=== PATIENT | female | born 1965 | race Caucasian/White ===

== ENCOUNTER 2017-04-24 10:00 | Day surgery (SDC) | payer BC ==
[2017-04-24] MEDS ORDERED: LIDOCAINE 4% SOLUTION 50 ML BTL (11:18)
[2017-04-24] MEDS ORDERED: FENTAnyl 50 MCG/ML VIAL (11:42)
[2017-04-24] MEDS ORDERED: MIDAZOLAM 1 MG/ML 2 ML INJ ×2 (11:42)
== END 2017-04-24 13:29 | disposition home or self-care (01) ==
LOC: GIL 10:00
DX: K29.50 Unspecified chronic gastritis without bleeding (principal)
CPT/HCPCS: 43239; 88305; 88312

== ENCOUNTER 2017-12-20 16:09 | Inpatient (IN) | payer BC ==
[2017-12-20] MEDS: SOD CHLORIDE 0.9% 1,000 ML IV (17:03)
[2017-12-20] MEDS: morphine 4 MG/ML VIAL IV (17:04)
[2017-12-20] MEDS: ONDANSETRON 4 MG INJ IV (17:04)
[2017-12-20 17:05] LABS: ADD MAN DIFF? NO
[2017-12-20 17:07] LABS: BASOPHIL # 0.1 10^3/ul (0.0-0.1); EOSINOPHILS # 0.3 10^3/ul (0.0-0.5); EOSINOPHILS % 4.5 % (0.0-7.0); HEMATOCRIT 40.1 % (37.0-47.0); HEMOGLOBIN 13.7 g/dl (12.0-16.0); LYMPHOCYTES # 1.7 10^3/ul (0.8-2.9); LYMPHOCYTES % 29.6 % (15.0-51.0); MEAN CORPUSCULAR HEMOGLOBIN 32.5 pg (29.0-33.0); MEAN CORPUSCULAR HGB CONC 34.2 g/dl (32.0-37.0); MEAN CORPUSCULAR VOLUME 95.2 fl (82.0-101.0); MEAN PLATELET VOLUME 10.3 fl (7.4-10.4); MONOCYTE # 0.4 10^3/ul (0.3-0.9); MONOCYTES % 6.7 % (0.0-11.0); NEUTROPHIL # 3.3 10^3/ul (1.6-7.5); NEUTROPHILS % 57.3 % (39.0-77.0); PLATELET COUNT 195 10^3/UL (140-415); RED BLOOD COUNT 4.21 10^6/ul (4.20-5.40); RED CELL DISTRIBUTION WIDTH 12.5 % (11.5-14.5)
[2017-12-20 17:07] LABS: WHITE BLOOD COUNT 5.8 10^3/ul (4.8-10.8)
[2017-12-20 17:15] LABS: ADD UMIC YES; UR ASCORBIC ACID 40 mg/dL (NEGATIVE); UR BACTERIA FEW /HPF (NONE SEEN); UR BILIRUBIN (Dip) NEGATIVE (NEGATIVE); UR BLOOD (Dip) NEGATIVE (NEGATIVE); UR BUDDING YEAST FEW /HPF (NONE SEEN); UR CLARITY CLOUDY (CLEAR); UR COLOR YELLOW (YELLOW); UR GLUCOSE (Dip) NEGATIVE (NEGATIVE); UR KETONES (Dip) NEGATIVE (NEGATIVE); UR LEUKOCYTE ESTERASE (Dip) NEGATIVE Leu/ul (NEGATIVE); UR MUCUS MODERATE /HPF (NONE SEEN); UR NITRITE (Dip) NEGATIVE (NEGATIVE); UR RBC 9 /HPF (0-5); UR SPECIFIC GRAVITY (Dip) 1.028 (1.003-1.030); UR SQUAMOUS EPITHELIAL CELL FEW /HPF (FEW); UR TOTAL PROTEIN (Dip) NEGATIVE (NEGATIVE); UR UROBILINOGEN (Dip) NEGATIVE (NEGATIVE); UR WBC 10 /HPF (0-5)
[2017-12-20 17:25] LABS: ALANINE AMINOTRANSFERASE 90 IU/L (13-69); ALBUMIN 3.7 g/dl (3.3-4.9); ALBUMIN/GLOBULIN RATIO 1.08; ALKALINE PHOSPHATASE 102 IU/L (42-121); ANION GAP 13 (8-16); ASPARTATE AMINO TRANSFERASE 63 IU/L (15-46); BILIRUBIN,INDIRECT 0.6 mg/dl (0-1.1); BILIRUBIN,TOTAL 0.6 mg/dl (0.2-1.3); BLOOD UREA NITROGEN 13 mg/dl (7-20); CALCIUM 9.8 mg/dl (8.4-10.2); CARBON DIOXIDE 28 mmol/L (21-31); CHLORIDE 106 mmol/L (97-110); CREATININE 1.06 mg/dl (0.44-1.00); GLUCOSE 151 mg/dl (70-220); LIPASE 111 U/L (23-300); POTASSIUM 3.9 mmol/L (3.5-5.1); SODIUM 143 mmol/L (135-144); TOTAL PROTEIN 7.1 g/dl (6.1-8.1)
[2017-12-20] MEDS: KETOROLAC 30 MG INJ IV (18:08)
[2017-12-20] MEDS: ASPIRIN 81 MG TAB PO (19:59)
[2017-12-20 20:03] LABS: TROPONIN-I < 0.012 ng/ml (0.000-0.120)
[2017-12-20] MEDS: LORAZEPAM 2 MG INJ IV (21:59)
[2017-12-20] MEDS: LIDOCAINE/MYLANTA 40 ML BTL PO (21:59)
[2017-12-21] MEDS: ONDANSETRON 4 MG INJ IV (04:00)
[2017-12-21] MEDS ORDERED: ONDANSETRON 4 MG INJ IV (04:00)
[2017-12-21] MEDS: morphine 2 MG INJ IV (04:00)
[2017-12-21] MEDS ORDERED: DOCUSATE SODIUM 100 MG CAP PO (05:30)
[2017-12-21] MEDS ORDERED: morphine 2 MG INJ IV (05:30)
[2017-12-21] MEDS ORDERED: BISACODYL (EC) 5 MG TAB PO (05:30)
[2017-12-21] MEDS ORDERED: ACETAMINOPHEN 325 MG TAB PO (05:30)
[2017-12-21] MEDS ORDERED: NACL 0.9% 3 ML SYG IV (05:30)
[2017-12-21 05:43] LABS: ADD MAN DIFF? NO
[2017-12-21] MEDS: SOD CHLORIDE 0.9% 1,000 ML IV ×2 (05:51→20:32)
[2017-12-21] MEDS: NITROGLYCERIN (SL) 0.4 MG TAB SL (05:51)
[2017-12-21] MEDS: SUCRALFATE 1 GM TAB PO ×4 (05:51→23:37)
[2017-12-21] MEDS: PANTOPRAZOLE 40 MG INJ IV ×2 (05:51→17:35)
[2017-12-21 05:56] LABS: WHITE BLOOD COUNT 6.3 10^3/ul (4.8-10.8)
[2017-12-21 05:56] LABS: BASOPHIL # 0.1 10^3/ul (0.0-0.1); BASOPHILS % 0.8 % (0.0-2.0); EOSINOPHILS # 0.3 10^3/ul (0.0-0.5); EOSINOPHILS % 4.9 % (0.0-7.0); HEMATOCRIT 41.1 % (37.0-47.0); HEMOGLOBIN 14.2 g/dl (12.0-16.0); LYMPHOCYTES # 2.1 10^3/ul (0.8-2.9); LYMPHOCYTES % 33.5 % (15.0-51.0); MEAN CORPUSCULAR HEMOGLOBIN 32.6 pg (29.0-33.0); MEAN CORPUSCULAR HGB CONC 34.5 g/dl (32.0-37.0); MEAN CORPUSCULAR VOLUME 94.5 fl (82.0-101.0); MEAN PLATELET VOLUME 10.4 fl (7.4-10.4); MONOCYTE # 0.4 10^3/ul (0.3-0.9); MONOCYTES % 6.8 % (0.0-11.0); NEUTROPHIL # 3.4 10^3/ul (1.6-7.5); NEUTROPHILS % 53.5 % (39.0-77.0); PLATELET COUNT 197 10^3/UL (140-415); RED BLOOD COUNT 4.35 10^6/ul (4.20-5.40); RED CELL DISTRIBUTION WIDTH 12.5 % (11.5-14.5)
[2017-12-21 06:09] LABS: D-DIMER 405.04 ng/ml (<460)
[2017-12-21] MEDS: ENOXAPARIN 100 MG/ML SYG SC (06:09)
[2017-12-21 07:10] LABS: ALBUMIN 4.2 g/dl (3.3-4.9); ALBUMIN/GLOBULIN RATIO 1.27; ALKALINE PHOSPHATASE 96 IU/L (42-121); ANION GAP 11 (8-16); ASPARTATE AMINO TRANSFERASE 63 IU/L (15-46); BILIRUBIN,INDIRECT 0.7 mg/dl (0-1.1); BILIRUBIN,TOTAL 0.7 mg/dl (0.2-1.3); BLOOD UREA NITROGEN 12 mg/dl (7-20); CALCIUM 9.3 mg/dl (8.4-10.2); CARBON DIOXIDE 28 mmol/L (21-31); CHLORIDE 107 mmol/L (97-110); CHOL/HDL RATIO 6.2 RATIO; CHOLESTEROL 245 mg/dl (100-200); CREATININE 0.81 mg/dl (0.44-1.00); GLUCOSE 106 mg/dl (70-220); HDL CHOLESTEROL 39 mg/dl (37-92); LDL CHOLESTEROL,CALCULATED 162 mg/dl; MAGNESIUM 2.3 mg/dl (1.7-2.5); POTASSIUM 4.1 mmol/L (3.5-5.1); SODIUM 142 mmol/L (135-144); TOTAL PROTEIN 7.5 g/dl (6.1-8.1); TRIGLYCERIDES 220 mg/dl (0-149)
[2017-12-21 07:55] LABS: ALANINE AMINOTRANSFERASE 90 IU/L (13-69)
[2017-12-21 09:15] LABS: HEMOGLOBIN A1C 6.1 % (0-5.9)
[2017-12-21 10:43] LABS: FREE T4 (FREE THYROXINE) 0.56 ng/dl (0.64-1.79)
[2017-12-21 10:50] LABS: AADO2 Arterial 55.7 mmHg (7.0-24.0); Allen Test ACCEPTAB; Arterial Base Excess -1.2 mmol/L (-3.0-3); Arterial Blood Gas Oxygen Sat 97.6 mmHG (95.0-98.0); Arterial COHb 0.1 % (0.0-3.0); Arterial Fraction of Oxyhgb 97.3 % (93.0-99.0); Arterial HCO3 21.9 mmol/L (22.0-26.0); Arterial MetHb 0.2 % (0.0-1.5); Arterial Total Hemglobin 14.3 g/dl (12.0-18.0); Arterial pCO2 32.6 mmhg (35-45); MODE NASAL CANNULA; Site Right Radial
[2017-12-21 11:24] LABS: TROPONIN-I < 0.012 ng/ml (0.000-0.120)
[2017-12-21] MEDS: LEVOTHYROXINE 150 MCG TAB PO (11:37)
[2017-12-21] MEDS ORDERED: morphine LIQ (10 MG/5 ML) CUP PO (15:30)
[2017-12-21 16:49] LABS: TROPONIN-I < 0.012 ng/ml (0.000-0.120)
[2017-12-22] MEDS: SOD CHLORIDE 0.9% 1,000 ML IV ×3 (01:02→17:18)
[2017-12-22 06:01] LABS: ADD MAN DIFF? NO
[2017-12-22 06:11] LABS: WHITE BLOOD COUNT 5.6 10^3/ul (4.8-10.8)
[2017-12-22 06:11] LABS: BASOPHIL # 0.1 10^3/ul (0.0-0.1); BASOPHILS % 0.9 % (0.0-2.0); EOSINOPHILS # 0.3 10^3/ul (0.0-0.5); EOSINOPHILS % 5.2 % (0.0-7.0); HEMATOCRIT 39.2 % (37.0-47.0); HEMOGLOBIN 13.4 g/dl (12.0-16.0); LYMPHOCYTES # 1.9 10^3/ul (0.8-2.9); LYMPHOCYTES % 34.3 % (15.0-51.0); MEAN CORPUSCULAR HEMOGLOBIN 32.5 pg (29.0-33.0); MEAN CORPUSCULAR HGB CONC 34.2 g/dl (32.0-37.0); MEAN CORPUSCULAR VOLUME 95.1 fl (82.0-101.0); MEAN PLATELET VOLUME 10.4 fl (7.4-10.4); MONOCYTE # 0.5 10^3/ul (0.3-0.9); MONOCYTES % 8.6 % (0.0-11.0); NEUTROPHIL # 2.8 10^3/ul (1.6-7.5); NEUTROPHILS % 50.6 % (39.0-77.0); PLATELET COUNT 196 10^3/UL (140-415); RED BLOOD COUNT 4.12 10^6/ul (4.20-5.40); RED CELL DISTRIBUTION WIDTH 12.6 % (11.5-14.5)
[2017-12-22] MEDS: LEVOTHYROXINE 125 MCG TAB PO (06:14)
[2017-12-22] MEDS: PANTOPRAZOLE 40 MG INJ IV ×2 (06:14→17:18)
[2017-12-22] MEDS: SUCRALFATE 1 GM TAB PO ×3 (06:14→17:18)
[2017-12-22 07:13] LABS: ANION GAP 8 (8-16); BLOOD UREA NITROGEN 8 mg/dl (7-20); CALCIUM 8.6 mg/dl (8.4-10.2); CARBON DIOXIDE 28 mmol/L (21-31); CHLORIDE 109 mmol/L (97-110); CREATININE 0.94 mg/dl (0.44-1.00); GLUCOSE 101 mg/dl (70-220); MAGNESIUM 2.2 mg/dl (1.7-2.5); PHOSPHORUS 3.5 mg/dl (2.5-4.9); POTASSIUM 4.3 mmol/L (3.5-5.1); SODIUM 141 mmol/L (135-144)
[2017-12-22] MEDS: ONDANSETRON 4 MG INJ IV ×2 (09:53→20:08)
[2017-12-22] MEDS: KETOROLAC 30 MG INJ IV ×2 (09:54→20:00)
[2017-12-22] MEDS: LIDOCAINE 5% PATCH TD (11:47)
[2017-12-22] MEDS: PEG/ELECTROLYTES 4L BTL PO (16:26)
[2017-12-23] MEDS: SOD CHLORIDE 0.9% 1,000 ML IV ×2 (04:00→17:02)
[2017-12-23 04:53] LABS: ADD MAN DIFF? NO
[2017-12-23 05:02] LABS: BASOPHIL # 0.1 10^3/ul (0.0-0.1); BASOPHILS % 0.8 % (0.0-2.0); EOSINOPHILS # 0.3 10^3/ul (0.0-0.5); EOSINOPHILS % 4.4 % (0.0-7.0); HEMATOCRIT 39.4 % (37.0-47.0); HEMOGLOBIN 13.2 g/dl (12.0-16.0); LYMPHOCYTES # 1.9 10^3/ul (0.8-2.9); LYMPHOCYTES % 25.6 % (15.0-51.0); MEAN CORPUSCULAR HEMOGLOBIN 32.1 pg (29.0-33.0); MEAN CORPUSCULAR HGB CONC 33.5 g/dl (32.0-37.0); MEAN CORPUSCULAR VOLUME 95.9 fl (82.0-101.0); MEAN PLATELET VOLUME 9.9 fl (7.4-10.4); MONOCYTE # 0.6 10^3/ul (0.3-0.9); MONOCYTES % 7.7 % (0.0-11.0); NEUTROPHIL # 4.4 10^3/ul (1.6-7.5); NEUTROPHILS % 61.1 % (39.0-77.0); PLATELET COUNT 194 10^3/UL (140-415); RED BLOOD COUNT 4.11 10^6/ul (4.20-5.40); RED CELL DISTRIBUTION WIDTH 12.4 % (11.5-14.5)
[2017-12-23 05:02] LABS: WHITE BLOOD COUNT 7.2 10^3/ul (4.8-10.8)
[2017-12-23 05:18] LABS: POTASSIUM 4.3 mmol/L (3.5-5.1)
[2017-12-23] MEDS: PANTOPRAZOLE 40 MG INJ IV ×2 (05:24→17:53)
[2017-12-23] MEDS: SUCRALFATE 1 GM TAB PO ×5 (05:24→23:11)
[2017-12-23 05:33] LABS: ANION GAP 10 (8-16); BLOOD UREA NITROGEN 6 mg/dl (7-20); CALCIUM 8.5 mg/dl (8.4-10.2); CARBON DIOXIDE 27 mmol/L (21-31); CHLORIDE 111 mmol/L (97-110); CREATININE 0.91 mg/dl (0.44-1.00); GLUCOSE 103 mg/dl (70-220); POTASSIUM 4.5 mmol/L (3.5-5.1); SODIUM 143 mmol/L (135-144)
[2017-12-23] MEDS: LEVOTHYROXINE 125 MCG TAB PO (06:33)
[2017-12-23] MEDS ORDERED: PROPOFOL 200 MG INJ (07:00)
[2017-12-23] MEDS: LIDOCAINE 5% PATCH TD (09:13)
[2017-12-23] MEDS: LIDOCAINE 2% (SDV) 5 ML INJ (11:55)
[2017-12-23] MEDS: PROPOFOL 60 ML (11:55)
[2017-12-23] MEDS: FENTAnyl 50 MCG/ML VIAL IV (13:47)
[2017-12-23] MEDS: ACETAMINOPHEN 1000MG/100ML IV 100 ML IVPB (14:00)
[2017-12-23] MEDS ORDERED: ONDANSETRON 4 MG INJ IV (14:00)
[2017-12-23] MEDS ORDERED: DIPHENHYDRAMINE 50 MG INJ IV (14:00)
[2017-12-23] MEDS ORDERED: OXYCODONE/ACETAMINOPHEN (5/325) TAB PO (14:00)
[2017-12-23] MEDS ORDERED: LABETALOL HCL 20MG INJ IV (14:00)
[2017-12-23] MEDS: ONDANSETRON 4 MG INJ IV (23:12)
[2017-12-24] MEDS: SOD CHLORIDE 0.9% 1,000 ML IV ×2 (03:02→12:04)
[2017-12-24 05:43] LABS: ADD MAN DIFF? NO
[2017-12-24 05:50] LABS: BASOPHIL # 0.1 10^3/ul (0.0-0.1); BASOPHILS % 0.7 % (0.0-2.0); EOSINOPHILS # 0.3 10^3/ul (0.0-0.5); EOSINOPHILS % 4.2 % (0.0-7.0); HEMATOCRIT 40.3 % (37.0-47.0); HEMOGLOBIN 13.8 g/dl (12.0-16.0); LYMPHOCYTES # 2.1 10^3/ul (0.8-2.9); LYMPHOCYTES % 31.4 % (15.0-51.0); MEAN CORPUSCULAR HEMOGLOBIN 32.5 pg (29.0-33.0); MEAN CORPUSCULAR HGB CONC 34.2 g/dl (32.0-37.0); MEAN PLATELET VOLUME 10.4 fl (7.4-10.4); MONOCYTE # 0.5 10^3/ul (0.3-0.9); MONOCYTES % 7.4 % (0.0-11.0); NEUTROPHIL # 3.8 10^3/ul (1.6-7.5); PLATELET COUNT 190 10^3/UL (140-415); RED BLOOD COUNT 4.24 10^6/ul (4.20-5.40); RED CELL DISTRIBUTION WIDTH 12.5 % (11.5-14.5)
[2017-12-24 05:50] LABS: WHITE BLOOD COUNT 6.7 10^3/ul (4.8-10.8)
[2017-12-24] MEDS: SUCRALFATE 1 GM TAB PO ×2 (06:08→12:00)
[2017-12-24] MEDS: LEVOTHYROXINE 125 MCG TAB PO (06:08)
[2017-12-24] MEDS: PANTOPRAZOLE 40 MG INJ IV (06:08)
[2017-12-24 06:13] LABS: ANION GAP 11 (8-16); BLOOD UREA NITROGEN 11 mg/dl (7-20); CALCIUM 9.4 mg/dl (8.4-10.2); CARBON DIOXIDE 29 mmol/L (21-31); CHLORIDE 106 mmol/L (97-110); CREATININE 1.05 mg/dl (0.44-1.00); GLUCOSE 110 mg/dl (70-220); PHOSPHORUS 4.2 mg/dl (2.5-4.9); SODIUM 142 mmol/L (135-144)
[2017-12-24] MEDS: LIDOCAINE 5% PATCH TD (07:53)
== END 2017-12-24 12:35 | disposition home or self-care (01) | DRG 206 ==
LOC: E/R 16:09 → 6WM 12-21 02:59
PROC: 0DB58ZX Excision of Esophagus, Via Natural or Artificial Opening Endoscopic, Diagnostic (ICD-10-PCS; principal; 2017-12-23 11:45)
PROC: 0DB68ZX Excision of Stomach, Via Natural or Artificial Opening Endoscopic, Diagnostic (ICD-10-PCS; 2017-12-23 11:45)
PROC: 0DJD8ZZ Inspection of Lower Intestinal Tract, Via Natural or Artificial Opening Endoscopic (ICD-10-PCS; 2017-12-23 11:45)
DX: M94.0 Chondrocostal junction syndrome [Tietze] (principal); K92.1 Melena; Z86.711 Personal history of pulmonary embolism; R10.12 Left upper quadrant pain; K59.00 Constipation, unspecified; E03.9 Hypothyroidism, unspecified; G47.33 Obstructive sleep apnea (adult) (pediatric); Z68.39 Body mass index [BMI] 39.0-39.9, adult; E66.9 Obesity, unspecified; R00.1 Bradycardia, unspecified; R07.89 Other chest pain; K21.9 Gastro-esophageal reflux disease without esophagitis; K29.70 Gastritis, unspecified, without bleeding; K64.4 Residual hemorrhoidal skin tags; K64.8 Other hemorrhoids
CPT/HCPCS: 36415; 36600; 71045; 71100; 74019; 74176; 76775; 78582; 80048; 80053; 80061; 81001; 82803; 83036; 83690; 83735; 84100; 84132; 84439; 84443; 84484; 85025; 85378; 88305; 88312; 88313; 93005; 93306; 93970; 96374; 96375; 99217; 99285-25; G0378

== ENCOUNTER 2018-04-26 12:42 | Emergency (ER) | payer BC | END 2018-04-26 16:59 | disposition home or self-care (01) | LOC: FTE 16:59 | DX: R07.9 Chest pain, unspecified (principal) | CPT/HCPCS: 93005; 99283-25 ==

== ENCOUNTER 2018-09-04 13:51 | Emergency (ER) | payer BC ==
[2018-09-04] MEDS: SOD CHLORIDE 0.9% 1,000 ML IV (14:51)
== END 2018-09-04 14:53 | disposition home or self-care (01) ==
LOC: FTE 13:51
DX: T63.444A Toxic effect of venom of bees, undetermined, initial encounter (principal)
CPT/HCPCS: 99283